=== PATIENT | female | born 1980 | race Caucasian/White ===

== ENCOUNTER 2018-12-22 09:48 | Inpatient (IN) | payer BC ==
[2018-12-22] MEDS ORDERED: VANCOMYCIN IV PER PHARMACY 1 EACH MISC MISCELLANE PRN (13:55)
[2018-12-22] MEDS ORDERED: VANCOMYCIN 1,250 MG in SODIUM CHLORIDE 0.9% 250 ML IVPB STA (14:09)
[2018-12-22 14:34] LABS: Basophils % (A) 1 %; Eosinophils % (A) 1 %; HCT 37.6 % (34.0-46.0); HGB 12.7 gm/dL (11.4-16.0); Lymphocytes # (A) 0.8 k/uL (1.0-4.8); Lymphocytes % (A) 16 %; MCHC 33.7 g/dL (31.0-37.0); Mean Platelet Volume 8.3; Monocytes # (A) 0.3 k/uL (0-1.0); Monocytes % (A) 6 %; Neutrophils # (A) 3.8 k/uL (1.3-7.7); Neutrophils % (A) 75 %; Platelet Count 228 k/uL (150-450); RBC 4.09 m/uL (3.80-5.40); RDW 13.5 % (11.5-15.5); WBC 5.1 k/uL (3.8-10.6)
[2018-12-22 14:49] LABS: African American GFR (CKD) >90 (>60 ml/min/1.73 sqM); Anion Gap 6 mmol/L; Blood Urea Nitrogen 10 mg/dL (7-17); C Reactive Protein <5.0 mg/L (<10.0); Calcium 9.5 mg/dL (8.4-10.2); Carbon Dioxide 27 mmol/L (22-30); Chloride 107 mmol/L (98-107); Glucose 77 mg/dL (74-99); Potassium 5.3 mmol/L (3.5-5.1); Sodium 140 mmol/L (137-145)
[2018-12-22 15:21] LABS: Erythrocyte Sedimentation Rate 4 mm/hr (0-20)
[2018-12-22] MEDS: NAPROXEN 250 MG TAB PO SCH ×2 (16:06→23:51)
[2018-12-22] MEDS: ENOXAPARIN 40 MG/0.4 ML SYRINGE SQ SCH (16:07)
--- NOTE | 2018-12-22 18:24 | P.CNOR ---
History of Present Illness - HPI Consult date: 12/22/18 History of present illness: This patient is a 38- year old female that was sent to [facility] today 12/22/[address] Kohli due to an ongoing infection of the right fourth toe. She states she originally underwent a removal of an ingrown toe nail in September 2018 by a monument letterer. She states she subsequently developed an infection, and she required multiple courses of oral antibiotics. She was referred to an orthopedic surgeon in [place], who referred the patient to Dr. Rueda. The patient presented to [facility] last [place] for increasing pain, where an MRI was performed. The patient was seen earlier today in the office by Dr. Kohli, who recommended she be admitted to the hospital. The patient states her toe is extremely painful to touch. She has no additional complaints. She denies fevers, chills, nausea, vomiting. She overall feels well. Vital signs stable. Past Medical History Past Medical History: CVA/TIA Additional Past Medical History / Comment(s): right vertibral artery dissection 2012, IBS History of Any Multi-Drug Resistant Organisms: None Reported Past Surgical History: Adenoidectomy, Tonsillectomy Additional Past Surgical History / Comment(s): R foot 4th toe debridement Past Anesthesia/Blood Transfusion Reactions: No Reported Reaction, Motion Sickness Smoking Status: Former smoker - Past Family History Mother Additional Family Medical History / Comment(s): Pt states her mother is unhealthy but unable to elaborate. Father Family Medical History: Cancer, Hypertension Additional Family Medical History / Comment(s): ALS. Father is . Medications and Allergies Home Medications Medication Instructions Recorded Confirmed Type Cephalexin [Keflex] 500 mg PO TID 12/22/18 12/22/18 History Dextroamphetamine/Amphetamine 25 mg PO QAM 12/22/18 12/22/18 History [Adderall Xr] Ibuprofen [Motrin Ib] 600 mg PO Q6H PRN 12/22/18 12/22/18 History Allergies Allergy/AdvReac Type Severity Reaction Status Date / Time azithromycin [From Zithromax] Allergy Anaphylaxis Verified 12/22/18 12:36 morphine AdvReac Itching Verified 12/22/18 12:36 Penicillins AdvReac Rash/Hives Verified 12/22/18 12:36 sulfamethoxazole AdvReac Rash/Hives Verified 12/22/18 12:36 [From Bactrim] trimethoprim [From Bactrim] AdvReac Rash/Hives Verified 12/22/18 12:36 Physical Examination On examination, the patient is sitting up in bed in apparent distress. She is alert and orientated x3. Head appears atraumatic and normocephalic. Her breathing appears nonlabored. On inspection of the right foot, there is mild erythema and eschar tissue at the fourth distal toe. Mild swelling. This area is extremely tender to palpation. Dorsalis pedis and posterior tibial pulses palpable, the foot is warm and well-perfused with brisk capillary refill. Sensation is intact to light touch of the toes and foot. Results - Labs Labs: Abnormal Lab Results - Last 24 Hours (Table) 12/22/18 12/22/18 Range/Units 13:55 13:55 Lymphocytes # 0.8 L (1.0-4.8) k/uL Potassium 5.3 H (3.5-5.1) mmol/L H & H 12/22/18 Range/Units 13:55 Hgb 12.7 (11.4-16.0) gm/dL Hct 37.6 (34.0-46.0) % Result Diagrams: 12/22/18 13:55 12/22/18 13:55 Assessment and Plan Assessment: Chronic infection right fourth toe Plan: - Discussed the clinical findings with the patient. I explained to the patient that we will need to review the MRI images of the right foot. Once the images are reviewed, we will most likely recommend a formal incision and drainage in the operating room tomorrow with Dr. Esquivel, pending the MRI results, medical clearance, and consent. - NPO diet at midnight. Patient also seen and examined by Dr. Esquivel.
[2018-12-22] MEDS: KETOROLAC 30 MG/ML 1 ML VIAL IVP PRN (20:23)
--- NOTE | 2018-12-22 23:45 | P.HPIM ---
History of Present Illness H&P Date: 12/22/18 Chief Complaint: Right fourth toe infection History of presenting complaint: This is a very pleasant [address] Riley Woody. Chronic stable medical conditions include irritable bowel syndrome, right vertebral artery dissection that was self-limiting, ADD. Patient's is the end of September developed an ingrowing right fourth toenail. She gone to see the escapement maker. She's had 3 sessions where it has been surgically intervened with local anesthesia. Has continued intermittently drain. It has become extremely tender. She did see Dr. ray from infectious disease. Patient was directly admitted for the same for a possible I&D by orthopedics. No fever no chills. Patient not able to be in any footwear. Patient be taken to or tomorrow morning. No fever no chills. Review of systems: GEN.: None EYES: None HEENT: None NECK: None RESPIRATORY: None CARDIOVASCULAR: None GASTROINTESTINAL: Has a bowel movement every 3-4 days GENITOURINARY: None MUSCULOSKELETAL: None LYMPHATICS: None HEMATOLOGICAL: None PSYCHIATRY: None NEUROLOGICAL: None DERMATOLOGICAL: As above Past medical history to include: Irritable bowel syndrome, ADD, nonhealing right fourth toe wound Social history: , alcohol occasionally, no smoking, works with [employer] Physical examination: VITAL SIGNS: 98.6, 86, 18, 11 1 x 64, 95% room air GENERAL: BMI 20.3, laying in bed, comfortable. EYES: Pupils equal. Conjunctiva normal. HEENT: External appearance of nose and ears normal, oral cavity grossly normal. NECK: JVD not raised; masses not palpable. HEART: First and second heart sounds are normal; no edema. LUNGS: Respiratory rate normal; clear to auscultation. ABDOMEN: Soft, nontender, liver spleen not palpable, no masses palpable. PSYCH: Alert and oriented x3; mood and affect normal. NEUROLOGICAL: Cranial nerves grossly intact; no facial asymmetry, power and sensation grossly intact. LYMPHATICS: No lymph nodes palpable in the axilla and neck EXTREMITIES: Right fourth toe dorsal aspect medial half swollen, bit discolored very tender including that In the pulp of the finger INVESTIGATIONS, reviewed in the clinical context: White count 5.1 hemoglobin 12.7 platelets 228 potassium 5.3 creatinine 0.63 Assessment: -Right fourth toe, wound that started from an ingrowing toenail has had 3 times surgical intervention by the escapement maker failing to respond. Now to be opened I&D by orthopedics -irritable bowel syndrome -ADD Plan: Patient is being seen by Dr. Esquivel from orthopedics. Dr. ray from infectious disease. Home medications are renewed. Patient be soaking in warm. On IV Toradol. When necessary and scheduled naproxen. Also in IV vancomycin. As an outpatient patient had been on Keflex. We'll add Lovenox for DVT prophylaxis. Care was discussed with the patient. Past Medical History Past Medical History: CVA/TIA Additional Past Medical History / Comment(s): right vertibral artery dissection 2012, IBS History of Any Multi-Drug Resistant Organisms: None Reported Past Surgical History: Adenoidectomy, Tonsillectomy Additional Past Surgical History / Comment(s): R foot 4th toe debridement Past Anesthesia/Blood Transfusion Reactions: No Reported Reaction, Motion Sickness Smoking Status: Former smoker - Past Family History Mother Additional Family Medical History / Comment(s): Pt states her mother is unhealthy but unable to elaborate. Father Family Medical History: Cancer, Hypertension Additional Family Medical History / Comment(s): ALS. Father is . Medications and Allergies Home Medications Medication Instructions Recorded Confirmed Type Cephalexin [Keflex] 500 mg PO TID 12/22/18 12/22/18 History Dextroamphetamine/Amphetamine 25 mg PO QAM 12/22/18 12/22/18 History [Adderall Xr] Ibuprofen [Motrin Ib] 600 mg PO Q6H PRN 12/22/18 12/22/18 History Allergies Allergy/AdvReac Type Severity Reaction Status Date / Time azithromycin [From Zithromax] Allergy Anaphylaxis Verified 12/22/18 12:36 morphine AdvReac Itching Verified 12/22/18 12:36 Penicillins AdvReac Rash/Hives Verified 12/22/18 12:36 sulfamethoxazole AdvReac Rash/Hives Verified 12/22/18 12:36 [From Bactrim] trimethoprim [From Bactrim] AdvReac Rash/Hives Verified 12/22/18 12:36 Physical Exam Vitals: Vital Signs Temp Pulse Resp BP Pulse Ox 12/22/18 21:36 97.0 F L 63 16 117/68 99 12/22/18 13:01 16 12/22/18 11:34 98.6 F 86 18 111/64 95 Intake and Output 12/22/18 12/22/18 12/23/18 14:59 22:59 06:59 Other: # Voids 1 Weight 64.09 kg Results CBC & Chem 7: 12/22/18 13:55 12/22/18 13:55 Labs: Abnormal Lab Results - Last 24 Hours (Table) 12/22/18 12/22/18 Range/Units 13:55 13:55 Lymphocytes # 0.8 L (1.0-4.8) k/uL Potassium 5.3 H (3.5-5.1) mmol/L Thrombosis Risk Factor Assmnt - Choose All That Apply Any of the Below Risk Factors Present?: No Other Risk Factors: No Other congenital or acquired thrombophilia - If yes, enter type in comment: No Thrombosis Risk Factor Assessment Level: Very Low Risk
[2018-12-22] MEDS: VANCOMYCIN 1,250 MG in SODIUM CHLORIDE 0.9% 250 ML IVPB SCH (23:51)
[2018-12-23] MEDS: KETOROLAC 30 MG/ML 1 ML VIAL IVP PRN ×3 (03:12→19:07)
--- NOTE | 2018-12-23 08:31 | P.PN ---
Subjective Progress Note Date: 12/23/18 This patient is a 38- year old female that was sent to [facility] 12/22/[address] Kohli due to an ongoing infection of the right fourth toe. She states she originally underwent a removal of an ingrown toe nail in September 2018 by a attorney lawyer. She states she subsequently developed an infection, and she required multiple courses of oral antibiotics. She was referred to an orthopedic surgeon in [place], who referred the patient to Dr. Rueda. The patient presented to [facility] last [place] for increasing pain, where an MRI was performed. The patient was seen earlier today in the office by Dr. Kohli, who recommended she be admitted to the hospital. The patient states her toe is extremely painful to touch. She has no additional complaints. She denies fevers, chills, nausea, vomiting. She overall feels well. Vital signs stable. 12/23/18: Patient states she feels the same today. There have been no acute increases in pain in the toe. She continues to feel well. She denies chest pain, shortness of breath, nausea, vomiting, fevers, chills. Objective - Vital Signs Vital signs: Vital Signs Temp 97.5 F L 12/23/18 05:04 Pulse 72 12/23/18 05:04 Resp 18 12/23/18 05:04 BP 114/73 12/23/18 06:00 Pulse Ox 97 12/23/18 05:04 Intake & Output 12/22/18 12/23/18 12/23/18 18:59 06:59 18:59 Intake Total 250 Balance 250 Weight 64.09 kg Intake: Intake, IV Titration 250 Amount Vancomycin 1,250 mg In 250 Sodium Chloride 0.9% 250 ml @ 125 mls/hr IVPB Q8H [facility] Rx#:[id number] Other: Voiding Method Toilet # Voids 1 1 - Exam On examination, the patient is sitting up in bed in apparent distress. She is alert and orientated x3. On inspection of the right foot, there is mild erythema and eschar tissue at the fourth distal toe. Mild swelling. This area is extremely tender to palpation. Dorsalis pedis and posterior tibial pulses palpable, the foot is warm and well-perfused with brisk capillary refill. Sensation is intact to light touch of the toes and foot. - Labs CBC & Chem 7: 12/22/18 13:55 12/22/18 13:55 Labs: Abnormal Lab Results - Last 24 Hours (Table) 12/22/18 12/22/18 Range/Units 13:55 13:55 Lymphocytes # 0.8 L (1.0-4.8) k/uL Potassium 5.3 H (3.5-5.1) mmol/L Assessment and Plan Assessment: Chronic infection right fourth toe Plan: - We are currently in the process of obtaining the MRI images and report of the right foot from [facility]. We will review images once obtained. - We will plan for a formal incision and drainage of the right fourth toe today in the operating room with Dr. Esquivel, pending medical clearance and consent, and also pending review of MRI. - NPO diet. Patient discuss with Dr. Esquivel.
[2018-12-23] MEDS: VANCOMYCIN 1,250 MG in SODIUM CHLORIDE 0.9% 250 ML IVPB SCH ×3 (08:44→23:52)
[2018-12-23] MEDS: ADDERALL 25 MG PO SCH (08:50)
[2018-12-23] MEDS: ENOXAPARIN 40 MG/0.4 ML SYRINGE SQ SCH (08:50)
[2018-12-23] MEDS: NAPROXEN 250 MG TAB PO SCH ×3 (08:50→21:48)
[2018-12-23 11:13] VITALS: BMI 20.2
[2018-12-23] MEDS ORDERED: LACTATED RINGERS 1,000 ML IV ONE (13:21)
[2018-12-23] MEDS ORDERED: ONDANSETRON 4 MG/2 ML VIAL IVP ONE (13:35)
[2018-12-23] MEDS ORDERED: PROPOFOL 10 MG/ML 20 ML VIAL IV ONE (14:08)
[2018-12-23] MEDS ORDERED: fentaNYL (PF) 50 MCG/ML 2 ML AMP ONE (14:08)
[2018-12-23] MEDS ORDERED: MIDAZOLAM 2 MG/2 ML VIAL ONE (14:08)
[2018-12-23] MEDS ORDERED: LIDOCAINE 2% INJ 20 MG/ML SQ ONE (14:35)
--- NOTE | 2018-12-23 15:07 | P.OP ---
Date of Procedure: 12/23/18 Preoperative Diagnosis: 1. History of right fourth toe ingrown toenail removal with soft tissue growth and possible chronic paronychial infection and distal phalanx osteomyelitis Postoperative Diagnosis: 1. Soft tissue mass right fourth toe 2. Possible distal phalanx osteomyelitis, but no sign of deep infection 3. History of ingrown toenail removal by podiatry fourth toe Procedure(s) Performed: I&D of right fourth toe (a scalpel was used sharply debrided skin and subcutaneous tissue down to the level of the distal phalanx) Anesthesia: MAC Surgeon: Tyler Esquivel Advertising Traffic Manager #1: Victoriano Shaffer Estimated Blood Loss (ml): 5 IV fluids (ml): 500 Pathology: other (Soft tissue sent to pathology and deep cultures were obtained) Condition: stable Disposition: PACU Indications for Procedure: The patient is a very pleasant, previously healthy 38-year-old female with a long-standing history of problems with her right fourth toe. The patient was initially seen in early September of this year by knowledge manager who performed a partial nail ablation for an ingrown toenail the office. According to the patient she had multiple repeated attempts at ingrown toenail removal. She developed progressively worsening pain, swelling, and a soft tissue mass over the nail. Her said that she was told by the knowledge manager may be a wart complicated in the process. She continued to have problems and was sent to see an orthopedic foot and ankle surgeon, Dr. Tim who recommended an MRI and referral to wound care. The patient has been following with Dr. Kohli. She had an MRI at [facility] which showed increased signal in the distal phalanx of the fourth toe and a fluid collection consistent with an abscess. The patient failed to improve and was sent to Dr. Kohli's office who admitted her to the hospital. Due to her failure to improve with nonsurgical wound care and an MRI showing signs suggestive of an abscess and deep space infection Dr. Kohli requested that I perform a formal irrigation and debridement of her wound. I met with the patient and evaluated her. On inspection of the fourth toe there was mild erythema diffusely surrounding the toe. There is hypertrophic soft tissue mass over the medial aspect of the nail fold. She was exquisitely tender. I reviewed the MRI report which showed a fluid collection consistent with an abscess. I agreed to perform an exploration of the wound and obtained deep cultures. I discussed the potential risks and complications of surgery including but not limited to risk of anesthesia, superficial infection, deep infection, delayed wound healing, wound necrosis, damage to local blood vessels or nerves, need for further treatment including further surgery and possibly an amputation. The patient understands this and provided her consent to go forward with surgery. Operative Findings: There was hypertrophic skin over the medial aspect of the nail fold of the right fourth toe. There was no abscess or fluid collection concerning for deep infection. Dissection was carried down to the distal phalanx which was probed and appeared to be healthy with no signs of osteomyelitis. Description of Procedure: The patient was identified in preoperative holding and the correct right foot and fourth toe was marked my initials. I reviewed the consent with the patient and her . All their questions were answered. The patient was brought back to the operating room. She was given a sedation by anesthesia. A timeout was performed identifying the correct patient, operative extremity, and procedure. The right leg was then prepped and draped in standard sterile fashion. Prior to prepping the leg a tourniquet was applied to the thigh. A digital block was performed of the right fourth toe using 2% lidocaine. The leg was then elevated, exsanguinated with an Esmarch bandage, and the tourniquet was inflated to 250 mmHg. I began by debriding the hypertrophic skin over the medial nail fold. The soft tissue was debrided and sent to pathology. The soft tissue appeared consistent with a wart. An incision was extended proximally along the medial nail fold and a small posterior hemostat was used open the soft tissue surrounding the distal phalanx. There was no abscess or sign of deep infection. A swab was taken directly plantar to the distal phalanx and sent to microbiology. Soft tissue from the hypertrophic mass was sent formal and pathology. The wound was thoroughly irrigated and closed using 3-0 nylon. A sterile dressing was applied and the patient was brought to recovery having tolerated the procedure well. Plan: The patient did not appear to have any sign of deep infection although is possible she has osteomyelitis based on her MRI. I will defer wound care and antibiotic indications to infectious disease. I recommend the patient follow-up with podiatry for continued toenail care and discussion on ablative treatment of the soft tissue mass pathology comes back consistent with a wart. The patient should follow up with me on an as-needed basis.
[2018-12-23] MEDS: HYDROmorphone 1 MG/ML 1 ML SYRINGE IVP ONE ×4 (15:10→15:41)
[2018-12-23] MEDS ORDERED: HYDROmorphone 0.5 MG/0.5 ML SYRINGE IVP STA (20:46)
--- NOTE | 2018-12-23 22:48 | P.PN ---
Progress Note - Text Progress Note Date: 12/23/18 Chief Complaint: Right fourth toe infection Interval history: This is a very pleasant [address] Riley Woody. Chronic stable medical conditions include irritable bowel syndrome, right vertebral artery dissection that was self-limiting, ADD. Patient's is the end of September developed an ingrowing right fourth toenail. She gone to see the sports anchor. She's had 3 sessions where it has been surgically intervened with local anesthesia. Has continued intermittently drain. It has become extremely tender. She did see Dr. ray from infectious disease. Patient was directly admitted for the same for a possible I&D by orthopedics. No fever no chills. Patient not able to be in any footwear. Today-saw the patient this morning. Waiting to go down to the OR. Pain present. No new issues. Review of systems: Was done for constitutional, cardiovascular, GI, pulmonary. relevant finding as above Active Medications Enoxaparin Sodium (Lovenox) 40 mg SQ DAILY [facility] Last Admin: 12/23/18 08:50 Dose: Not Given Documented by: Vancomycin HCl 1,250 mg/ (Sodium Chloride) 250 mls @ 125 mls/hr IVPB Q8H [facility] Last Admin: 12/23/18 16:33 Dose: 125 mls/hr Documented by: Ketorolac Tromethamine (Toradol) 15 mg IVP Q6HR PRN PRN Reason: Pain Stop: 12/26/18 20:04 Last Admin: 12/23/18 19:07 Dose: 15 mg Documented by: Miscellaneous Information (Vancomycin Trough Due) 0 each MISCELLANE DIRECTED ONE Stop: 12/24/18 07:01 Naproxen (Naprosyn) 250 mg PO TID [facility] Last Admin: 12/23/18 21:48 Dose: 250 mg Documented by: Adderall Xr 25mg 25 mg PO QAM [facility] Last Admin: 12/23/18 08:50 Dose: Not Given Documented by: Physical examination: VITAL SIGNS: Afebrile, 73, 16, 114/74, 99% room air GENERAL:, laying in bed, comfortable. EYES: Pupils equal. Conjunctiva normal. HEENT: External appearance of nose and ears normal, oral cavity grossly normal. NECK: JVD not raised; masses not palpable. HEART: First and second heart sounds are normal; no edema. LUNGS: Respiratory rate normal; clear to auscultation. ABDOMEN: Soft, nontender, liver spleen not palpable, no masses palpable. PSYCH: Alert and oriented x3; mood and affect normal. EXTREMITIES: Right fourth toe dorsal aspect medial half swollen, bit discolored very tender including that In the pulp of the finger INVESTIGATIONS, reviewed in the clinical context: No labs from today Assessment: -Right fourth toe, wound that started from an ingrowing toenail has had 3 times surgical intervention by the sports anchor failing to respond. Now to be opened I&D by orthopedics -irritable bowel syndrome -ADD Plan: Pending surgery this afternoon. Care was discussed with the patient. Continue medications
--- NOTE | 2018-12-23 23:26 | P.CONS ---
History of Present Illness - Reason for Consult Consult date: 12/23/18 Right fourth toe infection Requesting physician: Moreno Wei - Chief Complaint Right fourth toe pain swelling and redness 2 days - History of Present Illness Patient is a 38-year-old female was seen to have problem with her right fourth toe for the last few months and apparently did have multiple surgery done by her waistband setter starting with ingrowing toenail and has been on multiple courses of oral antibiotics including pharmacy and have Bactrim DS patient was recently admitted at [facility] with worsening pain to her right fourth toe with associated swelling and redness patient had did have an MRI which was initially read as possible ostomy myelitis however the patient did not have any fever or elevated white count MRI was reviewed with the radiologist and he doubted the diagnosis ofOsteomyelitis patient did receive doses of cefazolin with the patient tolerated subsequent discharged home on oral Keflex patient says she did well initially for few days however since Saturday she started having more pain on the right fourth toe which denies any history of any trauma patient described the pain to be throbbing almost 7-8 out of 10 worse with walking currently with no drainage with associated swelling and redness denies high-grade fever however did have some chills because of worsening symptoms patient was admitted direct from the office to be evaluated by orthopedics surgeon or possible I&D and deep cultures patient has been empirically started on vancomycin pending workup Review of Systems CONSTITUTIONAL: Positive for weakness. Chills but denies high-grade Fever EYES: No complaint. ENT:No complaint. RESPIRATORY: No complaint. CARDIOVASCULAR: No complaint. GENITOURINARY: No complaint. GASTROINTESTINAL: No complaint. MUSCULOSKELETAL: As per history of present illness. INTEGUMENTARY: As per history of present illness. PSYCHOLOGICAL: No complaint. ENDOCRINE: No complaint. NEUROLOGIC: No complaint. Past Medical History Past Medical History: CVA/TIA Additional Past Medical History / Comment(s): right vertibral artery dissection 2013, IBS History of Any Multi-Drug Resistant Organisms: None Reported Past Surgical History: Adenoidectomy, Tonsillectomy Additional Past Surgical History / Comment(s): R foot 4th toe debridement Past Anesthesia/Blood Transfusion Reactions: No Reported Reaction, Motion Sickness Smoking Status: Former smoker - Past Family History Mother Additional Family Medical History / Comment(s): Pt states her mother is unhealthy but unable to elaborate. Father Family Medical History: Cancer, Hypertension Additional Family Medical History / Comment(s): ALS. Father is . Medications and Allergies Home Medications Medication Instructions Recorded Confirmed Type Cephalexin [Keflex] 500 mg PO TID 12/22/18 12/22/18 History Dextroamphetamine/Amphetamine 25 mg PO QAM 12/22/18 12/22/18 History [Adderall Xr] Ibuprofen [Motrin Ib] 600 mg PO Q6H PRN 12/22/18 12/22/18 History Allergies Allergy/AdvReac Type Severity Reaction Status Date / Time azithromycin [From Zithromax] Allergy Anaphylaxis Verified 12/23/18 13:39 morphine AdvReac Itching Verified 12/23/18 13:39 Penicillins AdvReac Rash/Hives Verified 12/23/18 13:39 sulfamethoxazole AdvReac Rash/Hives Verified 12/23/18 13:39 [From Bactrim] trimethoprim [From Bactrim] AdvReac Rash/Hives Verified 12/23/18 13:39 Physical Exam Vitals: Vital Signs Temp Pulse Resp BP Pulse Ox 12/23/18 06:00 114/73 12/23/18 05:04 97.5 F L 72 18 89/57 97 12/22/18 21:36 97.0 F L 63 16 117/68 99 12/22/18 17:51 97.5 F L 72 18 114/73 97 12/22/18 13:01 16 12/22/18 11:34 98.6 F 86 18 111/64 95 Intake and Output 12/22/18 12/23/18 12/23/18 22:59 06:59 14:59 Intake Total 250 Balance 250 Intake: Intake, IV Titration 250 Amount Vancomycin 1,250 mg In 250 Sodium Chloride 0.9% 250 ml @ 125 mls/hr IVPB Q8H [facility] Rx#:[id number] Other: Voiding Method Toilet # Voids 1 Weight 64.09 kg GENERAL DESCRIPTION: Middle-aged female lying in bed, no distress. No tachypnea or accessory muscle of respiration use. HEENT: Shows Pallor , no scleral icterus. Oral mucous membrane is dry. No pharyngeal erythema or thrush NECK: Trachea central, no thyromegaly. LUNGS: Unlabored breathing. Clear to auscultation anteriorly. No wheeze or crackle. HEART: S1, S2, regular rate and rhythm. No loud murmur ABDOMEN: Soft, no tenderness , guarding or rigidity, no organomegaly EXTREMITIES: Right fourth toe with minimal swelling redness no open wound or any drainage. SKIN: No rash, no masses palpable. NEUROLOGICAL: The patient is awake, alert, oriented x3, mood and affect normal. Results CBC & Chem 7: 12/22/18 13:55 12/22/18 13:55 Labs: Abnormal Lab Results - Last 24 Hours (Table) 12/22/18 12/22/18 Range/Units 13:55 13:55 Lymphocytes # 0.8 L (1.0-4.8) k/uL Potassium 5.3 H (3.5-5.1) mmol/L Assessment and Plan Assessment: 1-patient with acute pain swelling redness to the right fourth toe in this patient who did have chronic nonhealing wound at the tip of her right fourth toe for the patient has multiple surgeries outpatient setting and his be due to multiple courses of antibiotics with concern for possible osteomyelitis likely from gram-positive skin nina that has failed outpatient oral Keflex and Bactrim DS therapy questionably community associated MRSA Plan: 1--vancomycin pharmacy to dose target trough of 15 while watching her kidney function and Vanco trough closely 2-await surgical I and D and deep cultures 3-gentle IV fluid we will follow on clinical condition and culture to further adjust medication if needed Thank you for this consultation will follow this patient along with you Time with Patient: Greater than 30
[2018-12-24] MEDS: KETOROLAC 30 MG/ML 1 ML VIAL IVP PRN ×3 (05:24→18:00)
[2018-12-24] MEDS ORDERED: VANCOMYCIN TROUGH DUE 1 EACH MISC MISCELLANE ONE (07:00)
[2018-12-24 07:59] LABS: African American GFR (CKD) >90 (>60 ml/min/1.73 sqM)
[2018-12-24] MEDS: ADDERALL 25 MG PO SCH (08:16)
[2018-12-24] MEDS: NAPROXEN 250 MG TAB PO SCH ×3 (08:17→22:20)
[2018-12-24] MEDS: ENOXAPARIN 40 MG/0.4 ML SYRINGE SQ SCH (08:18)
[2018-12-24] MEDS: VANCOMYCIN 1,250 MG in SODIUM CHLORIDE 0.9% 250 ML IVPB SCH (10:04)
[2018-12-24] MEDS: VANCOMYCIN 1,000 MG in SODIUM CHLORIDE 0.9% 250 ML IVPB SCH ×2 (10:29→17:56)
--- NOTE | 2018-12-24 13:05 | PN ---
PROGRESS NOTE DATE OF SERVICE: 12/24/2018 REASON FOR FOLLOWUP: Right fourth toe cellulitis and a question of osteomyelitis. INTERVAL HISTORY: The patient is afebrile. Patient was taken to the OR yesterday status post debridement of the right foot wound. No evidence of any infection down to the bone. Further discussion with Orthopedics as well as the . The patient's pain is currently throbbing and different type compared to when she came initially and it is more when she walks on it. No chest pain, shortness of breath or cough. No abdominal pain, no diarrhea. PHYSICAL EXAMINATION: Blood pressure 102/67 with a pulse of 66. Temperature 97.8 she is 97% on room air. General description is middle-aged female, lying in bed in no distress. RESPIRATORY SYSTEM: Unlabored breathing, clear to auscultation anteriorly. HEART: S1, S2. Regular rate. ABDOMEN: Soft, no tenderness. Right fourth toe is currently dressed up, no obvious drainage on the dressing. LABS: Cultures are currently pending. DIAGNOSTIC IMPRESSION AND PLAN: Patient with chronic pain to the right fourth toe with a component of cellulitis. Clinically doubt osteomyelitis. None was seen on the surgical exploration. Her sed rate and CRP are all normal, too. Currently on vanco. Will wait for the culture to finalize to determine her discharge antibiotics. Continue supportive care. MMODL / IJN: [id number] /
--- NOTE | 2018-12-24 16:51 | P.PN ---
Subjective Progress Note Date: 12/24/18 This patient is a 38- year old female that was sent to [facility] 12/22/[address] Kohli due to an ongoing infection of the right fourth toe. She states she originally underwent a removal of an ingrown toe nail in September 2018 by a seat cover cutter. She states she subsequently developed an infection, and she required multiple courses of oral antibiotics. She was referred to an orthopedic surgeon in [place], who referred the patient to Dr. Rueda. The patient presented to [facility] last Saturday for increasing pain, where an MRI was performed. The patient was seen earlier today in the office by Dr. Kohli, who recommended she be admitted to the hospital. The patient states her toe is extremely painful to touch. She has no additional complaints. She denies fevers, chills, nausea, vomiting. She overall feels well. Vital signs stable. 12/24/18: Today is post-operative day #1. The patient states she is doing well, she is tolerating her diet well. She has been up to the bathroom. She states her pain is currently well-controlled in the right foot. She denies any new complaints this morning. She denies fevers, chills, nausea, vomiting, numbness or tingling of the right lower extremity. She denies issue with moving the toes. Vital signs stable. Objective - Vital Signs Vital signs: Vital Signs Temp 97.8 F 12/24/18 05:00 Pulse 66 12/24/18 05:00 Resp 18 12/24/18 05:00 BP 102/67 12/24/18 05:00 Pulse Ox 97 12/24/18 05:00 Intake & Output 12/23/18 12/24/18 12/24/18 18:59 06:59 18:59 Intake Total 1200 840 Output Total 0 Balance 1200 840 Weight 64.09 kg Intake: IV 950 Intake, IV Titration 250 250 Amount Vancomycin 1,250 mg In 250 250 Sodium Chloride 0.9% 250 ml @ 125 mls/hr IVPB Q8H [facility] Rx#:[id number] Oral 590 Output: Estimated Blood Loss 0 Other: Voiding Method Toilet # Voids 2 - Exam On examination, the patient is sitting up in bed in apparent distress. She is alert and orientated x3. On inspection of the right foot, there is a clean, dry, intact surgical dressing in place. The visible portion of the toes are warm and well-perfused with brisk capillary refill. Sensation is intact to light touch of the toes. Patient is able to wiggle toes without pain or issue, no pain with PROM of the toes. - Labs CBC & Chem 7: 12/22/18 13:55 12/24/18 06:50 Labs: Microbiology - Last 24 Hours (Table) 12/23/18 14:46 Gram Stain - Preliminary Toe - Right Fourth Wound Culture - Preliminary 12/23/18 14:46 Fungal Culture - Preliminary Toe - Right Fourth 12/23/18 14:46 Anaerobic Culture - Preliminary Toe - Right Fourth 12/22/18 13:55 Blood Culture - Preliminary Blood No Growth after 24 hours Assessment and Plan Assessment: Possible chronic paronychial infection and distal phalanx osteomyelitis right fourth toe status-post incision and drainage on 12/23/18. Post-operative day #1. Plan: - Patient may heel weight bear on the right foot in a post-operative shoe. Elevation of the right foot to decrease post-operative swelling. - Intra-operative pathology and culture results pending, we will continue to follow results. - Antibiotics, wound care, DVT prophylaxis, and pain control per primary team and infectious disease. - We will continue to follow patient while she remains inpatient. Patient discussed with Dr. Esquivel.
--- NOTE | 2018-12-25 00:26 | P.PN ---
Progress Note - Text Progress Note Date: 12/24/18 Chief Complaint: Right fourth toe infection Interval history: This is a very pleasant [address] Riley Woody. Chronic stable medical conditions include irritable bowel syndrome, right vertebral artery dissection that was self-limiting, ADD. Patient's is the end of September developed an ingrowing right fourth toenail. She gone to see the shirt folder. She's had 3 sessions where it has been surgically intervened with local anesthesia. Has continued intermittently drain. It has become extremely tender. She did see Dr. ray from infectious disease. Patient was directly admitted for the same for a possible I&D by orthopedics. No fever no chills. Patient not able to be in any footwear. Patient status post I&D. No was was obtained. Cultures pending Today-sitting upon a chair. For dinner dressing. No fever no chills. Tolerating diet. Review of systems: Was done for constitutional, cardiovascular, GI, pulmonary. Musculoskeletal relevant finding as above Active Medications Enoxaparin Sodium (Lovenox) 40 mg SQ DAILY [facility] Last Admin: 12/24/18 08:18 Dose: Not Given Documented by: Vancomycin HCl 1,000 mg/ (Sodium Chloride) 250 mls @ 125 mls/hr IVPB Q8H [facility] Last Admin: 12/24/18 17:56 Dose: 125 mls/hr Documented by: Ketorolac Tromethamine (Toradol) 15 mg IVP Q6HR PRN PRN Reason: Pain Stop: 12/26/18 20:04 Last Admin: 12/24/18 18:00 Dose: 15 mg Documented by: Naproxen (Naprosyn) 250 mg PO TID [facility] Last Admin: 12/24/18 22:20 Dose: 250 mg Documented by: Adderall Xr 25mg 25 mg PO QAM [facility] Last Admin: 12/24/18 08:16 Dose: 25 mg Documented by: Physical examination: VITAL SIGNS: 97.9, 67, 16, 112/68, 100% room air GENERAL:, Propped up in chair EYES: Pupils equal. Conjunctiva normal. HEENT: External appearance of nose and ears normal, oral cavity grossly normal. NECK: JVD not raised; masses not palpable. HEART: First and second heart sounds are normal; no edema. LUNGS: Respiratory rate normal; clear to auscultation. ABDOMEN: Soft, nontender, liver spleen not palpable, no masses palpable. PSYCH: Alert and oriented x3; mood and affect normal. EXTREMITIES: Right foot and a dressing INVESTIGATIONS, reviewed in the clinical context: Creatinine 0.69 Cultures pending Assessment: -Right fourth toe, wound that started from an ingrowing toenail has had 3 times surgical intervention by the shirt folder failing to respond. Status post open &D on December 24 -irritable bowel syndrome -ADD Plan: Continue current antibiotic treatment plan. Await cultures. Care was discussed with the patient.
[2018-12-25] MEDS: KETOROLAC 30 MG/ML 1 ML VIAL IVP PRN ×3 (01:05→19:08)
[2018-12-25] MEDS: VANCOMYCIN 1,000 MG in SODIUM CHLORIDE 0.9% 250 ML IVPB SCH ×3 (01:05→19:13)
[2018-12-25] MEDS: NAPROXEN 250 MG TAB PO SCH ×2 (08:48→17:14)
[2018-12-25] MEDS: ENOXAPARIN 40 MG/0.4 ML SYRINGE SQ SCH (08:49)
[2018-12-25] MEDS: ADDERALL 25 MG PO SCH (09:00)
--- NOTE | 2018-12-25 13:10 | P.PN ---
Subjective Progress Note Date: 12/25/18 This patient is a 38- year old female that was sent to [facility] 12/22/[address] Kohli due to an ongoing infection of the right fourth toe. She states she originally underwent a removal of an ingrown toe nail in September 2018 by a certified tower climber. She states she subsequently developed an infection, and she required multiple courses of oral antibiotics. She was referred to an orthopedic surgeon in [place], who referred the patient to Dr. Rueda. The patient presented to [facility] last [place] for increasing pain, where an MRI was performed. The patient was seen earlier today in the office by Dr. Kohli, who recommended she be admitted to the hospital. The patient states her toe is extremely painful to touch. She has no additional complaints. She denies fevers, chills, nausea, vomiting. She overall feels well. Vital signs stable. 12/25/18: Today is post-operative day #2. Patient was examined bedside today with Dr. Esquivel. She states her pain is currently well-controlled in the right foot. She denies any new complaints today. She denies fevers, chills, nausea, vomiting. She denies issue with moving the toes. Vital signs stable. Objective - Vital Signs Vital signs: Vital Signs Temp 98 F 12/25/18 11:42 Pulse 75 12/25/18 11:42 Resp 16 12/25/18 11:42 BP 109/72 12/25/18 11:42 Pulse Ox 100 12/25/18 11:42 Intake & Output 12/24/18 12/25/18 12/25/18 18:59 06:59 18:59 Intake Total 1450 2700 Balance 1450 2700 Intake: Intake, IV Titration 250 250 Amount Vancomycin 1,000 mg In 250 250 Sodium Chloride 0.9% 250 ml @ 125 mls/hr IVPB Q8H [facility] Rx#:[id number] Oral 1200 2450 Other: Voiding Method Toilet Toilet # Voids 4 2 - Exam On examination, the patient is sitting up in bed in apparent distress. She is alert and orientated x3. On inspection of the right foot, there is a clean, dry, intact surgical dressing in place. Dressing is taken down and reveals a benign appearing incision within intact sutures. There is no surrounding erythema, warmth, or drainage. There are no signs of infection. The toes are warm and well-perfused with brisk capillary refill. Sensation is intact to light touch of the toes. Patient is able to wiggle toes without pain or issue, no pain with PROM of the toes. - Labs CBC & Chem 7: 12/22/18 13:55 12/24/18 06:50 Labs: Microbiology - Last 24 Hours (Table) 12/23/18 14:46 Gram Stain - Final Toe - Right Fourth Wound Culture - Final 12/22/18 13:55 Blood Culture - Preliminary Blood No Growth after 48 hours Assessment and Plan Assessment: Possible chronic paronychial infection and distal phalanx osteomyelitis right fourth toe status-post incision and drainage on 12/23/18. Post-operative day #2. Plan: - Patient may heel weight bear on the right foot in a post-operative shoe. Elevation of the right foot to decrease post-operative swelling. - Intra-operative pathology reported as verruca vulagris. Recommended patient follow-up with podiatry. - Cultures currently negative. We will continue to follow. - Antibiotics, wound care, DVT prophylaxis, and pain control per primary team and infectious disease. We usually leave sutures intact for 2 weeks post- operatively. - We will continue to follow patient while she remains inpatient. She may follow-up in our office on an as-needed basis. Patient discussed with Dr. Esquivel.
--- NOTE | 2018-12-25 14:09 | PN ---
PROGRESS NOTE DATE OF SERVICE: 12/25/2018 REASON FOR FOLLOWUP: Right fourth toe infection. INTERVAL HISTORY: The patient is currently afebrile. The patient has been breathing comfortably. Patient denies having any chest pain or shortness of breath, no cough. No abdominal pain or . PHYSICAL EXAMINATION: Blood pressure is 109/72 with a pulse of 75, temperature 98, she is 100% on room air. General description is a middle-aged female, lying in bed in no distress. RESPIRATORY SYSTEM: Unlabored breathing, clear to auscultation anteriorly. HEART: S1, S2. Regular rate and rhythm. ABDOMEN: Soft, no tenderness. Right foot overall swelling and redness has improved. Currently, there is no purulence. DIAGNOSTIC IMPRESSION AND PLAN: Patient with right fourth toe cellulitis with skin lesion, status post resection. Culture of the biopsy showing [QAMARKER] type where the patient benefit from a dermatology evaluation. As evidence of any osteomyelitis, give a short course of oral Keflex and close outpatient followup. Continue supportive care. MMODL / IJN: [id number] /
[2018-12-25] MEDS ORDERED: VANCOMYCIN TROUGH DUE 1 EACH MISC MISCELLANE ONE (17:00)
[2018-12-25 19:42] VITALS: BP 114/78; PULSE 65; RESP 18; TEMP 97.7
--- NOTE | 2018-12-26 22:45 | P.DS ---
Providers Date of admission: 12/22/18 11:15 Expected date of discharge: 12/26/18 Attending physician: Moreno Wei Consults: 12/22/18 12:33 Consult Physician Routine Consulting Provider: Sophia aRy Consult Reason/Comments: possible osteomyelitis Do you want consulting provider notified?: Already Contacted 12/22/18 13:55 Consult Physician Urgent Consulting Provider: Tyler Esquivel Consult Reason/Comments: right 4th toe infection Do you want consulting provider notified?: Yes Primary care physician: Riley Woody [facility] Course: Interval history: This is a very pleasant [address] Riley Woody. Chronic stable medical conditions include irritable bowel syndrome, right vertebral artery dissection that was self-limiting, ADD. Patient's is the end of September developed an ingrowing right fourth toenail. She gone to see the support associate. She's had 3 sessions where it has been surgically intervened with local anesthesia. Has continued intermittently drain. It has become extremely tender. She did see Dr. ray from infectious disease. Patient was directly admitted for the same for a possible I&D by orthopedics. No fever no chills. Patient was taken to the OR. Open I&D was done. Not found of any pus. Cultures remain negative. Patient symptoms doing much better. Day of discharge discussed with the patient and . Also discussed with Dr. ray from ID. Gabriella to be discharged on oral antibiotic. Consultation: Dr. Nguyễn ray from ID Dr. Esquivel [facility] Physical examination: VITAL SIGNS: 98, 75, 16, 109/72, 100% on room air GENERAL:, Sitting up, comfortable EYES: Pupils equal. Conjunctiva normal. HEENT: External appearance of nose and ears normal, oral cavity grossly normal. NECK: JVD not raised; masses not palpable. HEART: First and second heart sounds are normal; no edema. LUNGS: Respiratory rate normal; clear to auscultation. ABDOMEN: Soft, nontender, liver spleen not palpable, no masses palpable. PSYCH: Alert and oriented x3; mood and affect normal. EXTREMITIES: Right foot and a dressing INVESTIGATIONS, reviewed in the clinical context: Creatinine 0.69 Cultures negative Assessment: -Right fourth toe, wound that started from an ingrowing toenail has had 3 times surgical intervention by the support associate failing to respond. Status post open &D on December 24. Repeat cultures negative -irritable bowel syndrome -ADD Disposition: Home Patient Condition at Discharge: Stable Plan - Discharge Summary Discharge Rx Participant: No New Discharge Prescriptions: Continue Dextroamphetamine/Amphetamine [Adderall Xr] 25 mg PO QAM Ibuprofen [Motrin Ib] 600 mg PO Q6H PRN PRN Reason: Pain Cephalexin [Keflex] 500 mg PO TID #21 cap Discharge Medication List Dextroamphetamine/Amphetamine [Adderall Xr] 25 mg PO QAM 12/22/18 [History] Ibuprofen [Motrin Ib] 600 mg PO Q6H PRN 12/22/18 [History] Cephalexin [Keflex] 500 mg PO TID #21 cap 12/25/18 [Rx] Follow up Appointment(s)/Referral(s): Dylan Ames MD [STAFF PHYSICIAN] - 1 Week Sophia Ray MD [STAFF PHYSICIAN] - 1 Week Tyler Esquivel MD [Medical Doctor] - As Needed Patient Instructions/Handouts: Cephalexin (By mouth)
== END 2018-12-25 21:51 | disposition home or self-care (01) | DRG 983 ==
LOC: 3NMEDONC 11:15 → 3SCARD 12-23 22:33
PROVIDERS: ADMIT Hospitalist; ATTEND Hospitalist
PROC: 0QBQ0ZZ Excision of Right Toe Phalanx, Open Approach (ICD-10-PCS; principal; 2018-12-23 07:30)
DX: L03.031 Cellulitis of right toe (principal); L60.0 Ingrowing nail; K58.9 Irritable bowel syndrome, unspecified; G89.29 Other chronic pain; Z82.49 Family history of ischemic heart disease and other diseases of the circulatory system; Z86.73 Personal history of transient ischemic attack (TIA), and cerebral infarction without residual deficits; Z87.891 Personal history of nicotine dependence; Z88.1 Allergy status to other antibiotic agents; Z88.5 Allergy status to narcotic agent; Z88.0 Allergy status to penicillin; Z88.2 Allergy status to sulfonamides; Z82.0 Family history of epilepsy and other diseases of the nervous system; Z80.9 Family history of malignant neoplasm, unspecified; B07.9 Viral wart, unspecified; Z79.2 Long term (current) use of antibiotics; Z79.899 Other long term (current) drug therapy
CPT/HCPCS: 80048; 80202; 81025; 82565; 85025; 85652; 86140; 87040; 87070; 87075; 87102; 87205; 88305

== ENCOUNTER → 2020-05-25 | Outpatient (CLI) | payer OTHER ==
--- NOTE | 2020-05-25 12:12 | US ---
EXAMINATION TYPE: US abdomen complete DATE OF EXAM: 05/25/2020 COMPARISON: CT January 28, 2013 CLINICAL HISTORY: K76.89 Other specified ds, R10.9 abdominal pain. Pain EXAM MEASUREMENTS: Liver Length: 16.4 cm Gallbladder Wall: .2 cm CBD: .2 cm Spleen: 9.8 cm Right Kidney: 10.8 x 6.1 x 3.9 cm Left Kidney: 10.1 x 4.8 x 3.8 cm Pancreas: wnl Liver: Hyperechoic lesion probable hemangioma seen right lobe measuring 1.1 x 2.1 x 1.7 cm. Gallbladder: wnl Evidence for sonographic Zaragoza's sign: No CBD: wnl Spleen: wnl Right Kidney: wnl Left Kidney: wnl Upper IVC: wnl Abd Aorta: wnl Redemonstration of a round 1.7 cm right hepatic lobe hyperechoic lesion felt to reflect benign ky ioma. The intrahepatic portion of the IVC and visualized abdominal aorta are within normal limits. There is no evidence of shadowing mobile cholelithiasis. Common bile duct is unremarkable. The visu alized portions of the pancreas are homogenous. The spleen is unremarkable. Kidneys are symmetric a nd free of hydronephrosis. No renal lesions are seen. IMPRESSION: No acute findings are evident.
== END | disposition home or self-care (01) ==
LOC: RADUSWWP 11:12
PROVIDERS: ATTEND Family Medicine
DX: K76.89 Other specified diseases of liver (principal); R10.9 Unspecified abdominal pain
CPT/HCPCS: 76700

== ENCOUNTER → 2020-06-24 | Outpatient (CLI) | payer OTHER ==
--- NOTE | 2020-06-24 14:36 | NM ---
EXAMINATION TYPE: NM bone 3 phase DATE OF EXAM: 06/24/2020 COMPARISON: NONE HISTORY: Thoracic back pain Triple phase bone scintigraphy was performed following the injection of 22.7 mCi Tc 99m MDP. Immedia te images and 5.5 hours post injection images acquired. FINDINGS: Limiting scanning of the lower thoracic, upper lumbar spine There is no significant abnormal accumulation of radiotracer to suggest metastatic disease to the bon e or other significant abnormality. Soft tissue uptake is normal. IMPRESSION: No scintigraphic evidence of osseous metastatic disease.
== END | disposition home or self-care (01) ==
LOC: RADNMMAIN 07:22
PROVIDERS: ATTEND Family Medicine
DX: M54.6 Pain in thoracic spine (principal)
CPT/HCPCS: 78315; A9503

== ENCOUNTER → 2022-02-20 | Outpatient (CLI) | payer OTHER ==
--- NOTE | 2022-02-20 14:52 | US ---
EXAMINATION TYPE: US kidneys/renal and bladder DATE OF EXAM: 02/20/2022 COMPARISON: CT CAP dated 01/28/2013 CLINICAL HISTORY: N39.0 UTI site unspec. EXAM MEASUREMENTS: Right Kidney: 12.6 x 3.7 x 5.0 cm Left Kidney: 12.3 x 4.7 x 4.7cm Post Void Residual Volume: 12ml Incidental finding of 10 week 3 day , heart rate of 174. Incidental finding of hyperechoic liver mass measuring 2.0 x 1.2 x 1.5cm Right Kidney: No hydronephrosis or masses seen, slightly obscured by overlying bowel gas Left Kidney: No hydronephrosis or masses seen, slightly obscured by overlying bowel gas Bladder: wnl Bilateral Jets seen: Yes Normal Post Void Residual: Yes There is no evidence for hydronephrosis at this point in time. No nephrolithiasis is seen. No radha s are identified. The urinary bladder is adequately distended. Bilateral ureteral jets are seen. IMPRESSION: No hydronephrosis noted bilaterally.
[2022-02-20 19:56] LABS: Basophils # (A) 0.04 X 10*3/uL (0.00-0.10); Basophils % (A) 0.4 %; Eosinophils # (A) 0.03 X 10*3/uL (0.04-0.35); Eosinophils % (A) 0.3 %; HCT 44.9 % (37.2-46.3); HGB 15.5 g/dL (12.0-15.0); Immature Grans, Automated 0.5 %; Lymphocytes # (A) 1.16 X 10*3/uL (0.90-5.00); Lymphocytes % (A) 10.7 %; MCH 31.3 pg (27.0-32.0); MCHC 34.5 g/dL (32.0-37.0); MCV 90.7 fL (80.0-97.0); Mean Platelet Volume 11.9 fL (9.5-12.2); Monocytes # (A) 0.58 X 10*3/uL (0.20-1.00); Monocytes % (A) 5.4 %; NRBC Per 100 WBC 0 /100 WBCS (0.0-0.0); Neutrophils # (A) 8.94 X 10*3/uL (1.80-7.70); Neutrophils % (A) 82.7 %; Platelet Count 255 X 10*3/uL (140-440); RBC 4.95 X 10*6/uL (4.10-5.20); RDW 12.6 % (11.5-14.5)
[2022-02-20 20:33] LABS: Erythrocyte Sedimentation Rate 5 mm/Hr (0-20)
[2022-02-20 21:20] LABS: % Iron Saturation 26.46 (12.00-45.00); ALT 18 U/L (8-44); AST 16 U/L (13-35); African American GFR (CKD) 132.1 (60.0-200.0); Albumin 5.2 g/dL (3.8-4.9); Alkaline Phosphatase 49 U/L (41-126); Calcium 9.9 mg/dL (8.7-10.3); Carbon Dioxide 21.6 mmol/L (20.0-27.5); Chloride 101 mmol/L (96-109); Ferritin 62.6 ng/mL (10.0-291.0); Globulin 2.6 g/dL (1.6-3.3); Glucose 78 mg/dL (70-110); Iron 120 ug/dL (50-170); Sodium 136 mmol/L (135-145); Total Iron Binding Capacity 454 ug/dL (228-460); Total Protein 7.8 g/dL (6.2-8.2)
[2022-02-20 22:45] LABS: C Reactive Protein <0.30 mg/dL (0.00-0.80)
== END | disposition home or self-care (01) ==
LOC: RADUSWWP 12:06
PROVIDERS: ATTEND Family Medicine
DX: C43.9 Malignant melanoma of skin, unspecified (principal); N39.0 Urinary tract infection, site not specified; G62.9 Polyneuropathy, unspecified
CPT/HCPCS: 76770; 80053; 82607; 82728; 83540; 83550; 84439; 84443; 85025; 85652; 86038; 86140

== ENCOUNTER 2022-03-06 17:16 | Emergency (ER) | payer OTHER ==
[2022-03-06 18:01] VITALS: TEMP 98.3
[2022-03-06 18:43] LABS: Basophils % (A) 0 %; Eosinophils # (A) 0.1 k/uL (0-0.7); Eosinophils % (A) 1 %; HCT 35.3 % (34.0-46.0); HGB 12.7 gm/dL (11.4-16.0); Lymphocytes % (A) 11 %; MCH 32.7 pg (25.0-35.0); MCV 90.9 fL (80.0-100.0); Monocytes # (A) 0.4 k/uL (0-1.0); Monocytes % (A) 4 %; Neutrophils # (A) 7.9 k/uL (1.3-7.7); Neutrophils % (A) 81 %; Platelet Count 259 k/uL (150-450); RBC 3.88 m/uL (3.80-5.40); RDW 13.2 % (11.5-15.5); WBC 9.7 k/uL (3.8-10.6)
[2022-03-06 18:55] LABS: ALT 16 U/L (4-34); AST 24 U/L (14-36); African American GFR (CKD) >90 (>60 ml/min/1.73 sqM); Albumin 4.6 g/dL (3.5-5.0); Alkaline Phosphatase 60 U/L (38-126); Anion Gap 12 mmol/L; Blood Urea Nitrogen 10 mg/dL (7-17); Calcium 9.3 mg/dL (8.4-10.2); Carbon Dioxide 21 mmol/L (22-30); Chloride 104 mmol/L (98-107); Glucose 87 mg/dL (74-99); Non-African American GFR(CKD) >90 (>60 ml/min/1.73 sqM); Potassium 4.1 mmol/L (3.5-5.1); Sodium 137 mmol/L (137-145); Total Bilirubin 0.5 mg/dL (0.2-1.3); Total Protein 7.1 g/dL (6.3-8.2)
[2022-03-06] MEDS ORDERED: SODIUM CHLORIDE 0.9% 2,000 ML IV ONE (19:21)
[2022-03-06] MEDS ORDERED: KETOROLAC 15 MG/ML 1 ML VIAL IVP STA (20:00)
[2022-03-06 20:51] LABS: INR 0.9 (<1.2); Partial Thromboplastin Time 22.6 sec (22.0-30.0)
--- NOTE | 2022-03-06 20:52 | US ---
EXAMINATION TYPE: US pelvic complete DATE OF EXAM: 03/06/2022 COMPARISON: NONE CLINICAL HISTORY: recent , heavy bleeding. Medical last week of 12 week fetus and ross ving heavy bleeding with clots TECHNIQUE: TA. Transabdominal sonographic images of the pelvis were acquired. Patient did not wa nt TV due to pain Date of LMP: end november EXAM MEASUREMENTS: Uterus: 9.9 x 7.7 x 6.5 cm Endometrial Stripe: 1.8 - 2.6 cm Right Ovary: 2.3 x 2.1 x 1.5 cm Left Ovary: 2.3 x 2.2 x 1.5 cm 1. Uterus: Anteverted wnl 2. Endometrium: heterogeneous in appearance without any increased vascularity, mild in thickness 3. Right Ovary: wnl 4. Left Ovary: wnl 5. Bilateral Adnexa: wnl 6. Posterior cul-de-sac: wnl IMPRESSION: Findings suspicious for retained products of conception with heterogenous endometrial contents.
[2022-03-06] MEDS ORDERED: HYDROmorphone 0.5 MG/0.5 ML SYRINGE IVP STA (21:39)
[2022-03-06] MEDS ORDERED: METHYLERGONOVINE 0.2 MG/ML 1 ML AMP IM ONE (21:53)
--- NOTE | 2022-03-06 22:00 | ED ---
Abdominal Pain HPI - General Chief Complaint: Abdominal Pain Stated Complaint: Vaginal bleeding with large clots Time Seen by Provider: 03/06/22 19:10 Source: patient Mode of arrival: ambulatory Limitations: no limitations - History of Present Illness Initial Comments: Patient is a 42-year-old female presenting with chief complaint of pelvic cramping and heavy vaginal bleeding. Patient had a procedural performed one week ago by [facility], she was estimated to be about 12 weeks along as her last menstrual period was at the end of November. Patient states that she has seen many large clots. She admits to severe cramping not con trolled by Motrin and Tylenol. - Related Data Home Medications Medication Instructions Recorded Confirmed Dextroamphetamine/Amphetamine 25 mg PO QAM 12/22/18 12/22/18 [Adderall Xr] Ibuprofen [Motrin Ib] 600 mg PO Q6H PRN 12/22/18 12/22/18 Previous Rx's Medication Instructions Recorded Cephalexin [Keflex] 500 mg PO TID #21 cap 12/25/18 Ibuprofen [Motrin] 800 mg PO Q8H PRN #30 tab 03/06/22 Methylergonovine [Methergine] 0.2 mg PO TID 3 Days #9 tablet 03/06/22 Allergies Allergy/AdvReac Type Severity Reaction Status Date / Time azithromycin [From Zithromax] Allergy Anaphylaxis Verified 03/06/22 18:01 morphine AdvReac Itching Verified 03/06/22 18:01 Penicillins AdvReac Rash/Hives Verified 03/06/22 18:01 sulfamethoxazole AdvReac Rash/Hives Verified 03/06/22 17:51 [From Bactrim] trimethoprim [From Bactrim] AdvReac Rash/Hives Verified 03/06/22 18:01 Review of Systems ROS Statement: Those systems with pertinent positive or pertinent negative responses have been documented in the HPI. ROS Other: All systems not noted in ROS Statement are negative. Past Medical History Past Medical History: CVA/TIA Additional Past Medical History / Comment(s): right vertibral artery dissection 2012, IBS History of Any Multi-Drug Resistant Organisms: None Reported Past Surgical History: Adenoidectomy, Tonsillectomy Additional Past Surgical History / Comment(s): R foot 4th toe debridement Past Anesthesia/Blood Transfusion Reactions: No Reported Reaction, Motion Sickness Past Psychological History: No Psychological Hx Reported, ADD/ADHD Smoking Status: Current every day smoker Past Alcohol Use History: Occasional Past Drug Use History: None Reported - Past Family History Mother Additional Family Medical History / Comment(s): Pt states her mother is unhealthy but unable to elaborate. Father Family Medical History: Cancer, Hypertension Additional Family Medical History / Comment(s): ALS. Father is . General Exam Limitations: no limitations Course Vital Signs 03/06/22 03/06/22 17:57 22:45 Temperature 98.3 F Pulse Rate 80 74 Respiratory 18 15 Rate Blood Pressure 128/82 131/68 O2 Sat by Pulse 100 99 Oximetry Medical Decision Making - Medical Decision Making Patient is a 42-year-old female presenting with chief complaint of vaginal bleeding and pelvic cramping. Symptoms started yesterday. One week ago patient had a procedural performed at [facility]. On examination there are several large clots seen in the vaginal vault on speculum exam. Hemoglobin is 12.7 coags are normal. HCG quantitative is 648.8. Pelvic ultrasound shows retained products of conception. I spoke with OB on-call Dr. Cole, she advised giving Methergine and having the patient follow-up in the office. She recommended giving 0.2 mg Methergine IM here in the ER, and prescribing 0.2 mg 3 times a day for 2-3 days until the bleeding stops. Advised pain control with Motrin 800 every 8 hours. Recommend she follow up either with [facility] or in the office. I discussed these findings and this recommendation with the patient. Advised on supportive treatment and pain control. Patient states that she previously followed with Dr. Torres, and will be following up with him. Emphasized the importance of follow-up, as hCG needs to be followed until it returns to baseline 0. Follow-up with PCP. Report back to ER with any new or worsening symptoms. Discussed return parameters and answered all questions. Patient conveyed verbal understanding and agreed to the plan. I discussed this case in detail with my attending Dr. Inman. - Lab Data Result diagrams: 03/06/22 18:22 03/06/22 18:22 Lab Results 03/06/22 03/06/22 03/06/22 Range/Units 18:22 18:22 20:25 WBC 9.7 (3.8-10.6) k/uL RBC 3.88 (3.80-5.40) m/uL Hgb 12.7 (11.4-16.0) gm/dL Hct 35.3 (34.0-46.0) % MCV 90.9 (80.0-100.0) fL MCH 32.7 (25.0-35.0) pg MCHC 36.0 (31.0-37.0) g/dL RDW 13.2 (11.5-15.5) % Plt Count 259 (150-450) k/uL MPV 9.0 Neutrophils % 81 % Lymphocytes % 11 % Monocytes % 4 % Eosinophils % 1 % Basophils % 0 % Neutrophils # 7.9 H (1.3-7.7) k/uL Lymphocytes # 1.0 (1.0-4.8) k/uL Monocytes # 0.4 (0-1.0) k/uL Eosinophils # 0.1 (0-0.7) k/uL Basophils # 0.0 (0-0.2) k/uL PT (9.0-12.0) sec INR (<1.2) APTT (22.0-30.0) sec Sodium 137 (137-145) mmol/L Potassium 4.1 (3.5-5.1) mmol/L Chloride 104 (98-107) mmol/L Carbon Dioxide 21 L (22-30) mmol/L Anion Gap 12 mmol/L BUN 10 (7-17) mg/dL Creatinine 0.68 (0.52-1.04) mg/dL Est GFR (CKD-EPI)AfAm >90 (>60 ml/min/1.73 sqM) Est GFR (CKD-EPI)NonAf >90 (>60 ml/min/1.73 sqM) Glucose 87 (74-99) mg/dL Calcium 9.3 (8.4-10.2) mg/dL Total Bilirubin 0.5 (0.2-1.3) mg/dL AST 24 (14-36) U/L ALT 16 (4-34) U/L Alkaline Phosphatase 60 (38-126) U/L Total Protein 7.1 (6.3-8.2) g/dL Albumin 4.6 (3.5-5.0) g/dL HCG, Quant 648.8 mIU/mL 03/06/22 Range/Units 20:25 WBC (3.8-10.6) k/uL RBC (3.80-5.40) m/uL Hgb (11.4-16.0) gm/dL Hct (34.0-46.0) % MCV (80.0-100.0) fL MCH (25.0-35.0) pg MCHC (31.0-37.0) g/dL RDW (11.5-15.5) % Plt Count (150-450) k/uL MPV Neutrophils % % Lymphocytes % % Monocytes % % Eosinophils % % Basophils % % Neutrophils # (1.3-7.7) k/uL Lymphocytes # (1.0-4.8) k/uL Monocytes # (0-1.0) k/uL Eosinophils # (0-0.7) k/uL Basophils # (0-0.2) k/uL PT 10.0 (9.0-12.0) sec INR 0.9 (<1.2) APTT 22.6 (22.0-30.0) sec Sodium (137-145) mmol/L Potassium (3.5-5.1) mmol/L Chloride (98-107) mmol/L Carbon Dioxide (22-30) mmol/L Anion Gap mmol/L BUN (7-17) mg/dL Creatinine (0.52-1.04) mg/dL Est GFR (CKD-EPI)AfAm (>60 ml/min/1.73 sqM) Est GFR (CKD-EPI)NonAf (>60 ml/min/1.73 sqM) Glucose (74-99) mg/dL Calcium (8.4-10.2) mg/dL Total Bilirubin (0.2-1.3) mg/dL AST (14-36) U/L ALT (4-34) U/L Alkaline Phosphatase (38-126) U/L Total Protein (6.3-8.2) g/dL Albumin (3.5-5.0) g/dL HCG, Quant mIU/mL Disposition Clinical Impression: Retained products of conception following Disposition: HOME SELF-CARE Condition: Good Instructions (If sedation given, give patient instructions): Abnormal (Dysfunc tional) Uterine Bleeding (ED) Additional Instructions: Follow-up with MEDICAL REPRESENTATIVE. Report back to ER with any new or worsening symptoms. Take medication as prescribed. You may take Motrin 800 mg every 8 hours as needed for pain control. Warm heat source and Tylenol may also be helpful in alleviating her symptoms. Prescriptions: Methylergonovine [Methergine] 0.2 mg PO TID 3 Days #9 tablet Ibuprofen [Motrin] 800 mg PO Q8H PRN #30 tab PRN Reason: Pain Is patient prescribed a controlled substance at d/c from ED?: No Referrals: Beth Cole MD [STAFF PHYSICIAN] - 1-2 days Riley Woody MD [Primary Care Provider] - 1-2 days Eitan Torres MD [STAFF PHYSICIAN] - 1-2 days Time of Disposition: 21:59
[2022-03-06 22:45] VITALS: BP 131/68; PULSE 74; RESP 15
== END 2022-03-06 23:08 | disposition home or self-care (01) ==
LOC: EC 17:16
DX: O03.4 Incomplete spontaneous abortion without complication (principal); Z86.73 Personal history of transient ischemic attack (TIA), and cerebral infarction without residual deficits; F17.200 Nicotine dependence, unspecified, uncomplicated; Z88.0 Allergy status to penicillin; Z88.8 Allergy status to other drugs, medicaments and biological substances; Z88.2 Allergy status to sulfonamides; Z79.899 Other long term (current) drug therapy
CPT/HCPCS: 36415; 80053; 85025; 85610; 85730; 84702; 76856; 99284; 96374; 96361; J1885

== ENCOUNTER → 2023-04-18 | Outpatient (CLI) | payer OTHER ==
--- NOTE | 2023-04-19 13:55 | MM ---
Reason for Exam: Screening (asymptomatic). Baseline mammogram. Patient History: Menarche at age 16. First Full-Term at age 25. Patient has history of breast feeding. 05/02/2015, Bilateral Implants. Last menstrual period: 03/28/2023 Risk Values: Rachel 5 year model risk: 0.5%. NCI Lifetime model risk: 8.2%. Prior Study Comparison: Patient's first Mammogram. Tissue Density: The breast tissue is heterogeneously dense. This may lower the sensitivity of mammography. Findings: Analyzed By CAD. Bilateral breast implants. There is no suspicious group of microcalcifications or new suspicious mass. Overall Assessment: Negative, BI-RAD 1 Management: Screening Mammogram of both breasts in [address] [facility] will attempt to contact patient to return for supplemental views and ultrasound if indicated. Patient should continue monthly self-breast exams. A clinical breast exam by your physician is recommended on an annual basis. This exam should not preclude additional follow-up of suspicious palpable abnormalities. Note on Rachel scores and lifetime risk: 1. A Rachel score greater than 3% is considered moderate risk. If this is the case, consider specialist referral to assess eligibility for a risk reducing agent. 2. If overall lifetime risk for the development of breast cancer is 20% or higher, the patient may qualify for future screening with alternating mammogram and breast MRI. Electronically signed and approved by: Jared Desir DO
== END | disposition home or self-care (01) ==
LOC: RADMAMWWP 07:46
PROVIDERS: ATTEND Family Medicine
DX: Z12.31 Encounter for screening mammogram for malignant neoplasm of breast (principal); Z98.82 Breast implant status
CPT/HCPCS: 77063; 77067